=== PATIENT | female | born 1950 | race Caucasian/White ===

== ENCOUNTER → 2025-01-03 | Outpatient (CLI) | payer MEDICARE, OTHER ==
[~2025-01-03] MED LIST: ALBU90OI INH; ASPI81CH PO; ATEN25 PO; AZIT250 PO; FISH1000 PO; PHENY100ER PO; PRED20 PO
== END | disposition home or self-care (01) ==
LOC: LAB 10:39 → LAB SHORT 10:39
DX: M79.89 Other specified soft tissue disorders (principal)
CPT/HCPCS: 85379